=== PATIENT | male | born 2000 | race Caucasian/White ===

== ENCOUNTER → 2019-06-01 08:52 | Outpatient (CLI) | payer OTHER, SELFPAY ==
--- NOTE | 2019-06-01 09:15 | MRI_ITS ---
HISTORY:RIGHT ankle pain s/p injury 2 years ago. Continued lateral pain and swelling. MRI EXAMINATION OF THE Right ANKLE COMPARISON: none TECHNIQUE: Axial T1 and T2, fat-suppressed T2 coronal, T1 and STIR sagittal and oblique STIR axial images # of images including paperwork:185 FINDINGS: BONES; there is subchondral edema that is seen at the medial talar dome. Subchondral cyst formation is seen within the sustentaculum darrin at the posterior aspect there is a bone island seen within the anterior talus. Subchondral cyst formation is seen at the anterior tibia central portion TIBIOTALAR JOINT: There is a small tibiotalar joint effusion. Osteochondral surfaces of the tibiotalar joint osteochondral lesion is seen at the lateral central talar dome. This measures approximately 4.5 cm AP by approximately 6.3 cm transverse. Appears stable. There is focal overlying articular cartilage loss best seen on sagittal image 13 measuring approximately 3 mm. No loose bodies. SUBTALAR JOINT: There is no subtalar joint effusion. Osteochondral sufaces are intact. No loose bodies. OTHER TARSAL JOINTS: The remainter of the visualized joint of the hindfoot and midfoot show no narrowing or effusion. LIGAMENTS: The anterior posterior tibiofibular and talofibular ligaments are intact. The anterior talofibular ligament appears slightly thickened suggesting chronic sprain. The calcaneofibular ligament is intact. The deltoid ligaments are intact. The spring ligament is intact. The ligaments of the tarsal sinus are intact TENDONS:The extensor tendons are intact The peroneal tendons are intact. The peroneal retinaculum is intact. There is thickening of the posterior tibial tendon just proximal to its insertion suggesting intrasubstance tearing without evidence of a full-thickness tear. The remainder of the flexor tendons are intact PLANTAR APONEUROSIS: The plantar aponeurosis is unremarkable. NEUROVASCULAR STRUCTURES: The posterior tibial neurovascular bundle appears normal, without intinsic or extrinsic masses or foci or signal alteration. IMPRESSION: Thickening of the posterior tibial tendon just proximal insertion suspect for intrasubstance tearing and tendinosis but no evidence of a complete tear Probable chronic sprain involving the anterior talofibular ligament which appears thickened. Osteochondral lesion involving the mid lateral talar dome Subchondral cyst formation at the anterior central tibial plafond. There is also subchondral cyst seen at the posterior aspect of the sustentaculum darrin Small tibiotalar joint effusion at [id number] Reported and signed by: Tayla Benitez DO Electronically Signed: Tayla Benitez DO at 0:56 EDT Tel , Service support , MRI/Lower Ext Joint Only (Routine)
== END ==
PROVIDERS: Family Provider Family Medicine; PCP Family Medicine
DX: S93.401A Sprain of unspecified ligament of right ankle, initial encounter (principal); G89.29 Other chronic pain
CPT/HCPCS: 73721